=== PATIENT | male | born 1980 | race Asian ===

== ENCOUNTER 2024-06-27 10:52 | Outpatient (REF) | payer OTHER, SELFPAY ==
[2024-06-27 13:53] LABS: MANUAL DIFF FLAG NO
[2024-06-27 14:03] LABS: Basophils Percent Auto 0.2 % (0-2); Eosinophils Absolute Auto 0.1 X10*3/uL (0.0-0.4); Eosinophils Percent Auto 2.3 % (0-4); Hematocrit 40.2 % (42.0-52.0); Hemoglobin 13.8 g/dl (14.0-18.0); Imm Gran Abs Auto 0.02 X10*3/uL (0.00-0.03); Imm Gran Pct Auto 0.4 % (0.0-0.4); Lymphocytes Absolute Auto 1.5 X10*3/uL (1.2-4.9); Lymphocytes Percent Auto 30.8 % (20-40); Mean Corpuscular HGB Conc 34.3 g/dl (31.0-36.0); Mean Corpuscular Hemoglobin 29.7 pg (27.0-33.0); Mean Corpuscular Volume 86.6 fL (80.0-98.0); Mean Platelet Volume 9.1 fL (9.4-12.4); Monocytes Absolute Auto 0.6 X10*3/uL (0.1-1.2); Monocytes Percent Auto 12.4 % (2-11); Neutrophils Absolute Auto 2.6 x10*3/uL (2.0-8.3); Neutrophils Percent Auto 53.9 % (45-73); Platelet Count 366 X10*3/uL (160-400); Red Blood Count 4.64 X10*6/uL (4.60-5.80); Red Cell Distribution Width 12.1 % (11.0-16.0); White Blood Count 4.7 X10*3/uL (4.8-10.8)
[2024-06-27 14:21] LABS: Alanine Aminotransferase 34 U/L (0-40); Albumin Level 4.7 g/dL (3.5-5.0); Alkaline Phosphatase 69 U/L (39-117); Anion Gap 12 (12-20); Aspartate Amino Transferase 24 U/L (5-37); Bilirubin Total 0.6 mg/dL (0.0-1.0); Blood Urea Nitrogen 16 mg/dL (9-16); Carbon Dioxide 28 mmol/L (22-29); Chloride 101 mmol/L (96-108); Cholesterol 158 mg/dL (<200); Estimated Glomerular Filt Rate > 60; Glucose Fasting 96 mg/dL (60-99); HDL Cholesterol 32 mg/dL (>40); LDL Cholesterol Calculated 82 mg/dL (<100); Potassium 4.3 mmol/L (3.3-5.1); Sodium 137 mmol/L (135-145); Total Protein 8.3 g/dL (6.5-8.0); Triglycerides 221 mg/dL (<150)
[2024-06-27 14:45] LABS: Thyroid Stimulating Hormone 1.07 uIU/mL (0.32-4.0)
== END 2024-06-27 10:53 | disposition home or self-care (01) ==
LOC: HO.CHCLDS 10:52
PROVIDERS: Visit Provider Internal Medicine
DX: Z00.00 Encounter for general adult medical examination without abnormal findings (principal); F32.9 Major depressive disorder, single episode, unspecified; I10 Essential (primary) hypertension; K59.00 Constipation, unspecified; Z95.5 Presence of coronary angioplasty implant and graft; E78.00 Pure hypercholesterolemia, unspecified
CPT/HCPCS: 36415; 80053; 80061; 84443; 85025

== ENCOUNTER 2024-09-01 09:26 | Outpatient (AMB) | payer OTHER, SELFPAY ==
--- NOTE | 2024-09-01 09:31 | MHC.OFFVIS ---
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 Available records were reviewed. He is originally from [facility]. Apparently used to live in [place]. Around May of 2020, he apparently had chest pain episodes but could not get medical care in [facility]. Then he travel to [facility] a few weeks later where he underwent cardiac catheterization and LAD stenting. After that, it seems that he was generally okay. In the last few weeks/months, he has again noticing some chest pressure type episodes. He states that he walks for a 20-30 minutes and then started feeling some discomfort. He has been getting nitroglycerin from someone else. He is not aware of his medications but showed me a photograph with the bottles. That has both atorvastatin and rosuvastatin. Otherwise, listed to be on Plavix but not on aspirin and he is again not aware of that. Denies any smoking history. Not listed to be a diabetic or hypertensive. [facility] Medical History (Updated 09/01/24 @ 09:56 by Solomon Berg MD) Ischemic cardiomyopathy Atherosclerotic cardiovascular disease Surgical History (Updated 09/01/24 @ 09:41 by Meghann Thomas CMA) H/O angioplasty Family History (Updated 09/01/24 @ 09:41 by Meghann Thomas CMA) Father Heart attack HTN (hypertension) Mother HTN (hypertension) Social History (Updated 09/01/24 @ 09:42 by Meghann Thomas CMA) Alcohol intake: never Patient Tobacco Use Status: Never used Tobacco Review of Systems Const Denies chills, Denies daytime sleepiness, Denies fatigue, Denies fever(s), Denies poor appetite, Denies snoring, Denies stops breathing during sleep, Denies weakness, Denies weight gain and Denies weight loss Eyes Denies loss of vision ENT Denies dizziness and Denies hearing loss Card Denies chest pain, Denies irregular heart rhythm, Denies claudication, Denies leg edema, Denies lightheadedness, Reports palpitations, Denies dyspnea on exertion and Denies orthopnea Resp Denies cough, Denies excessive phlegm production, Denies dyspnea on exertion, Denies snoring and Denies wheezing GI Denies abdominal pain, Denies hematochezia, Denies change in bowel habits, Denies nausea and Denies vomiting Denies dysuria and Denies urinary frequency Musc Denies arthralgias, Denies muscle weakness, Denies numbness and Denies other Skin/Breast Denies nail changes and Denies rash Neuro Denies Abnormal speech present, Denies dizziness, Denies loss of vision, Denies memory loss, Denies numbness and Denies weakness Psych Denies depression and Denies memory loss Endo Denies fatigue and Reports palpitations Aron/Lymph Denies easy bruising Aller/Immun Denies wheezing Physical Exam Vital Signs: Last Vital Signs Pulse 68 09/01/24 09:36 BP 120/88 09/01/24 09:36 BMI result Body Mass Index 27.7 Const General: comfortable and no acute distress Orientation/consciousness: patient oriented x3 HEENT Other: Unremarkable Head: Yes normal to inspection Neck Neck: Yes normal visual inspection Chest Chest palpation & inspection: normal inspection of the chest Resp Auscultation: clear to auscultation bilaterally Cardio Palpation: normal PMI Heart sounds: S1 normal heart sound present, S2 normal heart sound present, no gallops, no murmurs and no rubs GI Palpation (GI): Soft to palpation Back/Spine/Pelvis Other: unremarkable Skin General skin exam: no rashes or lesions noted Neuro General: patient oriented x3 Speech: No Abnormal speech present Extrem General: Yes normal to inspection Psych Mental Status: mental status grossly normal Office Procedures EKG Details: EKG with underlying sinus rhythm at 68/Min; premature supraventricular/ventricular complexes; old anterolateral infarct; [place] [address]-[id number], Complete Assessment & Plan Assessment & Plan (1) Atherosclerotic cardiovascular disease: Code(s): I25.10 - Atherosclerotic heart disease of [place] coronary artery without angina pectoris Category: Medical (2) Ischemic cardiomyopathy: Code(s): I25.5 - Ischemic cardiomyopathy Category: Medical Plan Cardiac catheterization 2019-LAD with severe diffuse proximal and mid disease followed by severe disease in the distal part. Circumflex with mild irregularities. Small caliber OM1/OM2 with stenosis. PDA shows mild proximal disease. RCA with severe diffuse proximal disease and nondominant vessel. Status post PCI to LAD. Overall, established coronary disease, prior LAD PCI, ischemic cardiomyopathy again having anginal-type symptoms. We discussed about further workup. Recommend diagnostic catheterization and he is agreeable. We will also get an echocardiogram for cardiac function, LVEF and wall motion. With regard to medications, he is quite confused. As he is on 2 statins, we can stop the rosuvastatin and just continue atorvastatin. He is not sure if he is taking aspirin or not but list has Plavix and continue that. If any recurrent chest pain that would not resolve with SL nitrates, advised him to seek emergency help/911 call. Also advised him to avoid any strenuous physical activity. He seems to understand. Discussed with . He will schedule him for cardiac catheterization soon. Orders: Orders Complete Blood Count no Diff Today I25.10 - Atherosclerotic heart disease of [place] coronary artery without angina pectoris Basic Metabolic Panel Today I25.10 - Atherosclerotic heart disease of [place] coronary artery without angina pectoris Prothrombin Time INR Today I25.10 - Atherosclerotic heart disease of [place] coronary artery without angina pectoris CA echo transthoracic complete Today I25.10 - Atherosclerotic heart disease of [place] coronary artery without angina pectoris Cardiac Cath LT w PCI Today I25.10 - Atherosclerotic heart disease of [place] coronary artery without angina pectoris Medications: New nitroglycerin do not exceed 3 doses per episode 0.4 mg sublingual Q5M PRN 30 tabs 5RF chest pain I25.10 - Atherosclerotic heart disease of [place] coronary artery without angina pectoris, R07.2 - Precordial pain Coding Level of Care Code New Pt Level 5 (40867) Diagnoses Atherosclerotic cardiovascular disease I25.10 Ischemic cardiomyopathy I25.5 CPT Codes EKG - CPT: 13617-[id number], Complete ([id number])
[2024-09-01 09:36] VITALS: BP 120/88; PULSE 68; BMI 27.7
== END 2024-09-01 10:48 | disposition home or self-care (01) ==
PROVIDERS: PCP Internal Medicine; Visit Provider Internal Medicine
DX: I25.10 Atherosclerotic heart disease of native coronary artery without angina pectoris (principal); I25.5 Ischemic cardiomyopathy
CPT/HCPCS: 93010; 99204

== ENCOUNTER 2024-09-01 09:26 | Outpatient (REF) | payer SELFPAY ==
[2024-09-01 11:11] LABS: Hematocrit 40.7 % (42.0-52.0); Hemoglobin 13.9 g/dl (14.0-18.0); Mean Corpuscular HGB Conc 34.2 g/dl (31.0-36.0); Mean Corpuscular Volume 87.7 fL (80.0-98.0); Mean Platelet Volume 8.6 fL (9.4-12.4); Platelet Count 333 X10*3/uL (160-400); Red Blood Count 4.64 X10*6/uL (4.60-5.80); Red Cell Distribution Width 11.8 % (11.0-16.0); White Blood Count 5.3 X10*3/uL (4.8-10.8)
[2024-09-01 11:18] LABS: INTERNATIONAL NORM RATIO 0.9 (0.9-1.1)
[2024-09-01 11:49] LABS: Anion Gap 11 (12-20); Blood Urea Nitrogen 13 mg/dL (9-16); Calcium 9.3 mg/dL (8.4-10.2); Carbon Dioxide 24 mmol/L (22-29); Chloride 106 mmol/L (96-108); Estimated Glomerular Filt Rate > 60; Glucose Random 92 mg/dL (60-115); Potassium 3.8 mmol/L (3.3-5.1); Sodium 137 mmol/L (135-145)
== END 2024-09-01 09:27 | disposition home or self-care (01) ==
LOC: HO.LAB 09:26
PROVIDERS: PCP Internal Medicine; Visit Provider Internal Medicine
DX: I25.10 Atherosclerotic heart disease of native coronary artery without angina pectoris (principal)
CPT/HCPCS: 36415; 80048; 85027; 85610; 93005

== ENCOUNTER → 2024-09-23 23:59 | Outpatient (BNV) | payer OTHER, SELFPAY | PROVIDERS: PCP Internal Medicine; Visit Provider Internal Medicine Cardiovascular Disease | DX: I20.89 Other forms of angina pectoris (principal) | CPT/HCPCS: 93458; 99152 ==

== ENCOUNTER 2024-10-09 12:34 | Outpatient (AMB) | payer OTHER, SELFPAY ==
[2024-10-09 12:51] VITALS: BP 120/84; PULSE 75; BMI 29.2
--- NOTE | 2024-10-09 12:51 | A.OFFVIS_ITS ---
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: No Allergies No Known Allergies Allergy (Verified 10/09/24 12:54) Medication List - Last Reconciled 10/09/24 by Amanda Pratt, SHEILA-C aspirin 81 mg PO DAILY carvedilol 6.25 mg PO BID clopidogrel 75 mg PO DAILY furosemide 20 mg PO DAILY lisinopril 10 mg PO DAILY nitroglycerin 0.4 mg sublingual Q5M PRN rosuvastatin 20 mg PO DAILY HPI HPI * 2 wk s/p cathHS: Details: Rehmat is a 44-year-old male with past medical history of hyperlipidemia, coronary artery disease, lad stent 2020 who recently reported exertional chest discomfort and underwent cardiac catheterization and now presents for follow-up. Today he reports that he will get some mild chest discomfort only if he over exerts himself. He does not get symptoms with normal ADLs and his usual work schedule. 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 No concerning shortness of breath, no PND, orthopnea or edema. No lightheadedness, presyncope, syncope, falls. Right radial catheterization site is feeling good. Taking all meds as directed. [facility] Medical History Ischemic cardiomyopathy Atherosclerotic cardiovascular disease Surgical History H/O angioplasty Family History Father Heart attack HTN (hypertension) Mother HTN (hypertension) Social History Alcohol intake: never Patient Tobacco Use Status: Never used Tobacco Review of Systems Const All systems reviewed & are unremarkable except as noted in HPI and below ENT Denies dizziness Card Reports chest pain, Denies chest pain at rest, Reports chest pain with activity, Denies rapid heart rate, Denies pedal edema, Denies edema, Denies leg edema, Denies lightheadedness, Denies palpitations, Denies dyspnea, Denies dyspnea on exertion and Denies orthopnea Resp Denies cough, Denies dyspnea and Denies dyspnea on exertion GI Denies hematochezia and Denies change in stool character Musc Denies abnormal gait, Denies limited range of motion, Denies muscle cramps, Denies muscle weakness, Denies numbness, Denies radiating pain into limb, Denies stiffness and Denies tingling Neuro Denies abnormal gait, Denies dizziness, Denies numbness and Denies tingling Endo Denies palpitations Physical Exam Vital Signs: Last Vital Signs Pulse 75 10/09/24 12:51 BP 120/84 10/09/24 12:51 BMI result Body Mass Index 29.2 Const General: cooperative, healthy appearing, comfortable and no acute distress Orientation/consciousness: patient oriented x3 Neck Neck: Yes normal visual inspection and Yes no JVD Resp Effort & Inspection: normal respiratory effort Auscultation: clear to auscultation bilaterally, no crackles, no rales, no rhonchi and no wheezes Cardio Jugular venous distension: no JVD Rate: regular rate Rhythm: regular rhythm Heart sounds: S1 normal heart sound present, S2 normal heart sound present, no murmurs and no rubs Neuro General: patient oriented x3 Extrem Other: right radial cath site well healed, easily palp radial pulse, no bruit General: Yes normal to inspection, No no pedal edema and No calf tenderness Psych Appearance: grossly normal Mental Status: mental status grossly normal Speech and movement: Normal speech and movement present Assessment & Plan Assessment & Plan (1) Atherosclerotic cardiovascular disease: Code(s): I25.10 - Atherosclerotic heart disease of [place] coronary artery without angina pectoris Category: Medical Plan: History of CAD with LAD stent placed 2019. He recently reported some chest discomfort with exertional activities. A cardiac catheterization was done on 09/23/2024 showing patent stent, distal LAD and circumflex stenosis with branch vessel disease. The decision was made to manage him medically as his angina did not occur frequently, and only if he over exerted. Today he reports that he has not had discomfort since his catheterization procedure. 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 Will have him continue on aspirin and Plavix. Continue carvedilol, lisinopril and rosuvastatin. Signs and symptoms of angina reviewed. If his symptoms become more progressive then PCI will be considered. Discuss this all with him using charts in room. He states understanding. Cardiology follow-up to reassess symptoms in 3-4 months. (2) S/P cardiac cath: Comment: 09/23/2024 LAD 1st diagonal 90% stenosis, lad distal 70% stenosis, patent proximal LAD stent, left circumflex 70% stenosis, OM1 90% stenosis, mid RCA 90% stenosis, ramus 70% stenosis. -due to occasional symptoms plan is for medical management. If progressive angina then consider PCI Code(s): Z98.890 - Other specified postprocedural states Category: Surgical Plan: Right radial catheterization site well healed (3) Ischemic cardiomyopathy: Code(s): I25.5 - Ischemic cardiomyopathy Category: Medical Plan: Ischemic cardiomyopathy listed in problem list. He has no signs of heart failure on examination. Echocardiogram has been ordered however not completed as of yet. Plan to call him with results once available. At this time continue on carvedilol and lisinopril for neurohormonal modulation. (4) Hyperlipidemia: Code(s): E78.5 - Hyperlipidemia, unspecified Category: Medical Plan: [place] LDL goal less than 70 in patient with CAD. Labs done 06/27/2024 shows LDL 82. It looks like he had been on atorvastatin based on our record however his current med list includes rosuvastatin. Unclear what he was on when the LDL was last checked. Recommend recheck of fasting lipid profile. Continue statin therapy. Plan Time spent on chart review, documentation, interview and assessment Medications: New clopidogrel 75 mg PO DAILY 90 tabs 1RF rosuvastatin 20 mg PO DAILY 90 tabs 3RF aspirin 81 mg PO DAILY 90 tabs 3RF lisinopril 10 mg PO DAILY 90 tabs 1RF Changed From carvedilol must administer with a meal/food 6.25 mg PO BID To carvedilol must administer with a meal/food 6.25 mg PO BID 90 days 180 tabs 3RF Coding Level of Care Code Est Pt Level 4 (09572) Complex EM visit Add On G2211 Diagnoses Atherosclerotic cardiovascular disease I25.10 S/P cardiac cath Z98.890 Ischemic cardiomyopathy I25.5 Hyperlipidemia E78.5 Time Spent (min) 30
== END 2024-10-09 13:32 | disposition home or self-care (01) ==
PROVIDERS: PCP Internal Medicine; Visit Provider Nurse Practitioner Family
DX: I25.10 Atherosclerotic heart disease of native coronary artery without angina pectoris (principal); Z98.890 Other specified postprocedural states; I25.5 Ischemic cardiomyopathy; E78.5 Hyperlipidemia, unspecified
CPT/HCPCS: 99214

== ENCOUNTER 2024-10-27 11:54 | Outpatient (REF) | payer OTHER, SELFPAY ==
[2024-10-28 08:53] LABS: Rubeola IgG (Measles) >300.00 AU/mL
[2024-10-30 08:14] LABS: TS Negative Control Passed; TS Panel A 11; TS Panel B 12; TS Positive Control Passed; TSpotTB Positive (Negative)
== END 2024-10-27 11:55 | disposition home or self-care (01) ==
LOC: HO.CHCLDS 11:54
PROVIDERS: Visit Provider Internal Medicine
DX: Z02.89 Encounter for other administrative examinations (principal)
CPT/HCPCS: 36415; 86481; 86735; 86762; 86765; 86787

== ENCOUNTER 2024-11-03 11:40 | Outpatient (REF) | payer OTHER, SELFPAY ==
--- NOTE | ~2024-11-03 | XR_ITS ---
EXAMINATION: XR CHEST CLINICAL INFORMATION: HX OF POSITIVE QUANTIFERON TEST COMPARISON: None available. TECHNIQUE: 2 views of the chest were obtained. FINDINGS: No significant abnormality is noted involving the heart, lungs, mediastinum, bony thorax or soft tissues. XR/XR chest 2V IMPRESSION: Unremarkable examination. Electronically signed by: Lisa Vasquez MD 11/03/2024 01:18 PM [facility]
== END 2024-11-03 11:41 | disposition home or self-care (01) ==
LOC: HO.XRAY 11:40
PROVIDERS: PCP Internal Medicine; Visit Provider Internal Medicine
DX: R76.11 Nonspecific reaction to tuberculin skin test without active tuberculosis (principal)
CPT/HCPCS: 71046

== ENCOUNTER 2025-01-13 12:48 | Outpatient (AMB) | payer OTHER, SELFPAY ==
--- NOTE | 2025-01-13 12:50 | A.OFFVIS_ITS ---
Vital Signs 01/13/25 12:51 Height 5 ft 8 in Weight 187 lb 6.287 oz BMI 28.5 BP 118/80 Blood Pressure Location Lt brachial Position Sitting Pulse 88 Pulse Source Pulse Oximeter Intake Visit Reasons: 6m follow up Allergies No Known Allergies Allergy (Verified 10/09/24 12:54) Medication List - Last Reconciled 01/13/25 by Solomon Berg MD aspirin 81 mg PO DAILY carvedilol 6.25 mg PO BID 90 days clopidogrel 75 mg PO DAILY lisinopril 20 mg PO DAILY nitroglycerin 0.4 mg sublingual Q5M PRN rosuvastatin 20 mg PO DAILY HPI Comments Details: Rehmat returns for follow-up. In 2019, he underwent cardiac catheterization and LAD stenting. He was doing okay but last year he was again noticing anginal- type symptoms. That led to a diagnostic catheterization but medical management has been recommended. Overall, he states he is generally feels okay. Anginal symptoms are not too bothersome and infrequent. Otherwise, doing okay. Since last seen, he underwent diagnostic catheterization. That showed diffuse coronary disease and distal LAD/circumflex stenosis. It was felt that he could be treated medically for now and reserve revascularization for progressive symptoms in the future. [facility] Medical History Ischemic cardiomyopathy Atherosclerotic cardiovascular disease Surgical History H/O angioplasty Family History Father Heart attack HTN (hypertension) Mother HTN (hypertension) Social History Alcohol intake: never Patient Tobacco Use Status: Never used Tobacco Review of Systems Const Denies weakness ENT Denies dizziness Card Denies chest pain, Denies chest pain with activity, Denies syncope, Denies rapid heart rate, Denies pedal edema, Denies edema, Denies leg edema, Denies lightheadedness, Denies palpitations, Denies dyspnea, Denies dyspnea on exertion and Denies orthopnea Resp Denies cough, Denies dyspnea and Denies dyspnea on exertion GI Denies hematochezia and Denies change in stool character Musc Denies abnormal gait, Denies muscle cramps, Denies muscle weakness, Denies numbness, Denies radiating pain into limb and Denies tingling Neuro Denies abnormal gait, Denies dizziness, Denies syncope, Denies numbness, Denies tingling and Denies weakness Endo Denies palpitations Physical Exam Vital Signs: Last Vital Signs Pulse 88 01/13/25 12:51 BP 118/80 01/13/25 12:51 BMI result Body Mass Index 28.5 Const General: comfortable and no acute distress Orientation/consciousness: patient oriented x3 HEENT Other: Unremarkable Head: Yes normal to inspection Neck Neck: Yes normal visual inspection Chest Chest palpation & inspection: normal inspection of the chest Resp Auscultation: clear to auscultation bilaterally Cardio Palpation: normal PMI Heart sounds: S1 normal heart sound present, S2 normal heart sound present, no gallops, no murmurs and no rubs GI Palpation (GI): Soft to palpation Back/Spine/Pelvis Other: unremarkable Skin General skin exam: no rashes or lesions noted Neuro General: patient oriented x3 Extrem General: Yes normal to inspection Psych Mental Status: mental status grossly normal Assessment & Plan Assessment & Plan (1) Atherosclerotic cardiovascular disease: Code(s): I25.10 - Atherosclerotic heart disease of [place] coronary artery without angina pectoris Category: Medical Plan: In the cardiac catheterization from 08/2024, diffuse coronary disease involving the branches. LAD with patent proximal stent. Distal LAD/circumflex stenosis. He is on both aspirin and Plavix. Probably stop the Plavix next visit and just keep on aspirin. Continue beta-blockers. Continue statins. Last LDL 82 mg/dL. Triglycerides on the higher side at 221 mg/dL. Ideally, should be even better. In the past, st atins listed as both atorvastatin and rosuvastatin but currently just states rosuvastatin. No changes made to avoid confusion. In the past, he did not know any of his medications and hence reluctant to make changes. (2) Ischemic cardiomyopathy: Code(s): I25.5 - Ischemic cardiomyopathy Category: Medical Plan: In prior records, LVEF listed as 30% and 42% in different studies. Recheck on echocardiogram. Clinically, no symptoms or signs of congestive heart failure. Continue Coreg/lisinopril. (3) Primary hypertension: Code(s): I10 - Essential (primary) hypertension Category: Medical Plan: Continue lisinopril. Medications: Changed From lisinopril 10 mg PO DAILY 90 tabs 1RF To lisinopril 20 mg PO DAILY Coding Level of Care Code Est Pt Level 4 (65987) Diagnoses Atherosclerotic cardiovascular disease I25.10 Ischemic cardiomyopathy I25.5 Primary hypertension I10
[2025-01-13 12:51] VITALS: BP 118/80; PULSE 88; BMI 28.5
--- OUTSIDE RECORDS SUMMARY | 2025-01-13 13:39 | XMS_ITS ---
Author Name [facility] Organization Unknown Assessment and Plan ID Update Date Source Alert Text [place] [employer] - [id number] 05/24/2021 [place] [employer] - [id number] COVID Vaccination: This patient has received the PFR, COVID-19, mRNA, LNP-S, PF, 0.3mL vaccination on 05/24/2021 with lot number [id number] at [facility] [address] [place] [address]. [place] [employer] - [id number] 05/03/2021 [place] [employer] - [id number] COVID Vaccination: This patient has received the PFR, COVID-19, mRNA, LNP-S, PF, 0.3mL vaccination on 05/03/2021 with lot number [id number] at [facility] [address] [place] [address].
== END 2025-01-13 13:15 | disposition home or self-care (01) ==
PROVIDERS: PCP Internal Medicine; Visit Provider Internal Medicine
DX: I25.10 Atherosclerotic heart disease of native coronary artery without angina pectoris (principal); I25.5 Ischemic cardiomyopathy; I10 Essential (primary) hypertension
CPT/HCPCS: 99214

== ENCOUNTER → 2025-01-13 12:48 | Outpatient (BNVA) | payer OTHER, SELFPAY | PROVIDERS: PCP Internal Medicine; Visit Provider Internal Medicine | DX: I25.10 Atherosclerotic heart disease of native coronary artery without angina pectoris (principal); I25.5 Ischemic cardiomyopathy; I10 Essential (primary) hypertension | CPT/HCPCS: 99212 ==

== ENCOUNTER → 2025-01-14 13:45 | Outpatient (REF) | payer OTHER, SELFPAY ==
--- NOTE | 2025-01-14 13:48 | CA_ITS ---
Transthoracic Echocardiogram Patient (Last, First, Middle): Keke Fallt, Gender: Male Date of : 1980 Age: 44 Procedure Date: 01/14/2025 Procedure Type: Transthoracic Echocardiogram Location: OP Height: 172. 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 Study Quality: Adequate w/Contrast ECG Rhythm: Bradycardia Conclusions: - The left ventricular systolic function is moderately decreased. The visually estimated ejection fraction is between 30-35%. - The apex, apical anterior, apical septum, mid inferoseptal, and mid anteroseptal segments are akinetic. - No obvious valvular pathology seen on this study. Findings Procedure Information Contrast agent, definity, is being given per protocol without apparent complications. Left Ventricle Mildly increased left ventricular cavity size. There is normal left ventricular wall thickness. The left ventricular systolic function is moderately decreased. The visually estimated ejection fraction is between 30 35%. There is evidence of regional wall motion abnormalities. Diastolic function is normal for age. Wall Motion Rest Echo Findings The apex, apical anterior, apical septum, mid inferoseptal, and mid anteroseptal segments are akinetic. Right Ventricle Mildly increased right ventricular cavity size. There is normal right ventricular systolic function. Atria Both atria are normal in size. Aortic Valve There is a normal trileaflet aortic valve. There is no aortic valve stenosis. There is no aortic valve regurgitation. Mitral Valve The mitral valve appears normal. There is trace mitral valve regurgitation. There is no mitral valve stenosis. Pulmonic Valve The pulmonic valve is likely normal. Tricuspid Valve There is no tricuspid valve regurgitation. Tricuspid regurgitation envelope is inadequate for calculation of right ventricular systolic pressure. Great Vessels The asc aorta is normal in size. Venous The inferior vena cava is normal in size and collapses greater than 50% with inspiration. Pericardium/Pleural There is no evidence of pericardial effusion. Prior Study Comparison No prior study available for comparison. Recommendations, Care & Conclusions No obvious valvular pathology seen on this study. Measurements 2D Linear Measurements IVSd: 0.73 0.6-0.9/0.6-1.0 cm LVIDd: 5.67 3.9-5.3/4.2-5.9 cm LVIDd Index: 2.86 2.4-3.2/2.2-3.1 cm/m2 LVIDs: 4.38 2.0-3.6 cm LVPWd: 0.90 0.7-1.1 cm LA Diam: 4.00 2.7-3.8/3.0-4.0 cm LAIDs Index: 2.02 1.5-2.3 cm/m2 LV Mass: 213.51 67-162/88-224 g LV Mass Index: 107.83 43-95/49-115 g/m2 LVOT Diam: 2.30 3.0+(-)1.3 cm 2D Systolic Function EF 4C: 27.50 >55% EF 2C: 42.40 >55% EF BiP: 37.00 >55% Mitral Valve MV Pk E: 0.69 MV PK A: 0.56 MV Decel Time: 165.00 E/A: 1.20 E'Lateral: 10.10 E'Medial: 6.31 E/E' Med: 10.90 E/E' Lat: 6.80 PHT: 48.00 MVA PHT: 4.58 Decel Butler: 4.15 Aortic Valve AoV Pk Branden: 1.10 AoV Mn Branden: 0.85 AoV VTI: 0.23 AoV Pk Grad: 5.00 Aov Mn Grad: 3.00 RENZO Cont.VTI: 3.18 LVOT LVOT Pk Branden: 0.86 LVOT Mn Branden: 0.56 LVOT VTI: 0.18 LVOT Pk Grad: 3.00 LVOT Mn Grad: 2.00 LVOT Diam: 2.30 LVOT Area: 4.15 Diastolic Function MV Pk E: 0.69 MV Pk A: 0.56 E/A: 1.20 E'Medial: 6.31 E/E' Med: 10.90 E' Laterial: 10.10 E/E' Lat: 6.80 Right Ventricle TAPSE (mm): 23.80 TVS' Branden: 12.40 Tricuspid Valve RA Press: 3.00 Great Vessels Aorta Sinus of Valsalva: 3.30 2.0-3.5 cm Ao Asc: 2.90 2.1-3.4 cm Pulmonary Valve PV Pk Branden: 0.87 Peak PV Grad: 3.00 Updated in Other Vendor System with Status of Final Solomon Berg MD electronically signed on 01/15/2025 3:14:59 PM with status of Final
== END ==
LOC: HO.CARD 13:45
PROVIDERS: PCP Internal Medicine; Visit Provider Internal Medicine
DX: I25.10 Atherosclerotic heart disease of native coronary artery without angina pectoris (principal)
CPT/HCPCS: 93306; Q9957

== ENCOUNTER → 2025-01-14 13:48 | Outpatient (BNV) | payer OTHER, SELFPAY | PROVIDERS: PCP Internal Medicine; Visit Provider Internal Medicine | DX: I25.10 Atherosclerotic heart disease of native coronary artery without angina pectoris (principal); I51.89 Other ill-defined heart diseases | CPT/HCPCS: 93306 ==

== ENCOUNTER 2025-01-23 13:38 | Outpatient (REF) | payer OTHER, SELFPAY ==
[2025-01-23 14:48] LABS: Hematocrit 40.9 % (42.0-52.0); Hemoglobin 13.6 g/dl (14.0-18.0); Mean Corpuscular HGB Conc 33.3 g/dl (31.0-36.0); Mean Corpuscular Hemoglobin 28.8 pg (27.0-33.0); Mean Corpuscular Volume 86.7 fL (80.0-98.0); Mean Platelet Volume 9.3 fL (9.4-12.4); Platelet Count 297 X10*3/uL (160-400); Red Blood Count 4.72 X10*6/uL (4.60-5.80); Red Cell Distribution Width 12.6 % (11.0-16.0); White Blood Count 4.5 X10*3/uL (4.8-10.8)
[2025-01-23 16:24] LABS: Alanine Aminotransferase 66 U/L (0-40); Albumin Level 4.3 g/dL (3.5-5.0); Alkaline Phosphatase 58 U/L (39-117); Anion Gap 10 (12-20); Aspartate Amino Transferase 37 U/L (5-37); Bilirubin Total 0.3 mg/dL (0.0-1.0); Blood Urea Nitrogen 12 mg/dL (9-16); Calcium 9.3 mg/dL (8.4-10.2); Carbon Dioxide 26 mmol/L (22-29); Chloride 106 mmol/L (96-108); Cholesterol 142 mg/dL (<200); Estimated Glomerular Filt Rate > 60; Glucose Random 107 mg/dL (60-115); HDL Cholesterol 31 mg/dL (>40); LDL Cholesterol Calculated 61 mg/dL (<100); Potassium 4.2 mmol/L (3.3-5.1); Sodium 138 mmol/L (135-145); Total Protein 8.1 g/dL (6.5-8.0); Triglycerides 254 mg/dL (<150)
== END 2025-01-23 13:39 | disposition home or self-care (01) ==
LOC: HO.CHCLDS 13:38
PROVIDERS: Visit Provider Internal Medicine
DX: E78.2 Mixed hyperlipidemia (principal); I10 Essential (primary) hypertension; Z68.28 Body mass index [BMI] 28.0-28.9, adult; Z95.5 Presence of coronary angioplasty implant and graft
CPT/HCPCS: 36415; 80053; 80061; 85027

== ENCOUNTER 2025-07-08 12:21 | Outpatient (REF) | payer OTHER, SELFPAY ==
--- NOTE | ~2025-07-08 | XR_ITS ---
EXAMINATION: XR CHEST CLINICAL INFORMATION: HX OF POSITIVE QUANTIFERON TEST COMPARISON: November 03, 2024. TECHNIQUE: 2 views of the chest were obtained. FINDINGS: Prominence of the interstitial lung markings, perihilar region. No hyperinflation. No gross consolidation, pleural effusion or pneumothorax. Cardiomediastinal silhouette size is normal. S-shaped curvature of the thoracic spine. XR/XR chest 2V IMPRESSION: Concerning acute small airway inflammatory processes. Electronically signed by: Alex Pearl MD 07/08/2025 12:40 PM EDT
== END 2025-07-08 12:22 | disposition home or self-care (01) ==
LOC: HO.XRAY 12:21
PROVIDERS: PCP Internal Medicine; Visit Provider Internal Medicine
DX: R76.11 Nonspecific reaction to tuberculin skin test without active tuberculosis (principal)
CPT/HCPCS: 71046

== ENCOUNTER → 2025-07-08 12:26 | Outpatient (BNV) | payer OTHER, SELFPAY | PROVIDERS: PCP Internal Medicine; Visit Provider Radiology Diagnostic Radiology | DX: J21.9 Acute bronchiolitis, unspecified (principal) | CPT/HCPCS: 71046 ==

== ENCOUNTER 2025-07-13 13:36 | Outpatient (AMB) | payer OTHER, SELFPAY ==
[2025-07-13 13:40] VITALS: BP 122/70; PULSE 75; BMI 28.2
--- NOTE | 2025-07-13 13:40 | MHC.OFFVIS ---
Vital Signs 07/13/25 13:40 Height 5 ft 8 in Weight 185 lb 3.013 oz BMI 28.2 BP 122/70 Blood Pressure Location Lt brachial Position Sitting Pulse 75 Pulse Source Monitor Intake Visit Reasons: 6mth f/up-echo Allergies No Known Allergies Allergy (Verified 10/09/24 12:54) Medication List - Last Reconciled 07/13/25 by Solomon Berg MD aspirin 81 mg PO DAILY carvedilol 6.25 mg PO BID 90 days clopidogrel 75 mg PO DAILY lisinopril 20 mg PO DAILY nitroglycerin 0.4 mg sublingual Q5M PRN rosuvastatin 40 mg PO DAILY HPI Comments Details: Rehmat returns for follow-up. In 2019, he underwent cardiac catheterization and LAD stenting. He was doing okay but last year he was again noticing anginal-type symptoms. That led to a diagnostic catheterization but medical management recommended. For the most part, seems that he is doing fine. No new concerns. [facility] Medical History Ischemic cardiomyopathy Atherosclerotic cardiovascular disease Surgical History H/O angioplasty Family History Father Heart attack HTN (hypertension) Mother HTN (hypertension) Social History Alcohol intake: never Patient Tobacco Use Status: Never used Tobacco Review of Systems Const Denies weakness ENT Denies dizziness Card Denies chest pain, Denies chest pain with activity, Denies syncope, Denies rapid heart rate, Denies pedal edema, Denies edema, Denies leg edema, Denies lightheadedness, Denies palpitations, Denies dyspnea, Denies dyspnea on exertion and Denies orthopnea Resp Denies cough, Denies dyspnea and Denies dyspnea on exertion GI Denies hematochezia and Denies change in stool character Musc Denies abnormal gait, Denies muscle cramps, Denies muscle weakness, Denies numbness, Denies radiating pain into limb and Denies tingling Neuro Denies abnormal gait, Denies dizziness, Denies syncope, Denies numbness, Denies tingling and Denies weakness Endo Denies palpitations Physical Exam Vital Signs: Last Vital Signs Pulse 75 07/13/25 13:40 BP 122/70 07/13/25 13:40 BMI result Body Mass Index 28.2 Const General: comfortable and no acute distress Orientation/consciousness: patient oriented x3 HEENT Other: Unremarkable Head: Yes normal to inspection Neck Neck: Yes normal visual inspection Chest Chest palpation & inspection: normal inspection of the chest Resp Auscultation: clear to auscultation bilaterally Cardio Palpation: normal PMI Heart sounds: S1 normal heart sound present, S2 normal heart sound present, no gallops, no murmurs and no rubs GI Palpation (GI): Soft to palpation Back/Spine/Pelvis Other: unremarkable Skin General skin exam: no rashes or lesions noted Neuro General: patient oriented x3 Extrem General: Yes normal to inspection Psych Mental Status: mental status grossly normal Assessment & Plan Assessment & Plan (1) Atherosclerotic cardiovascular disease: Code(s): I25.10 - Atherosclerotic heart disease of [place] coronary artery without angina pectoris Category: Medical Plan: In the cardiac catheterization from 08/2024, diffuse coronary disease. LAD with patent proximal stent. Distal LAD/circumflex stenosis. He is on both aspirin and Plavix. He can continue the aspirin but stop Plavix. Continue beta-blockers. Continue statins. Patient states he had lab work done through his own PCP and statin dose was increased. We can get those labs. (2) Ischemic cardiomyopathy: Code(s): I25.5 - Ischemic cardiomyopathy Category: Medical Plan: In prior records, LVEF listed as 30% and 42% in different studies. In the echocardiogram, LVEF is 30-35% with wall motion abnormalities from underlying coronary disease. We can repeat this to see if there is any change. Discussed about ICD for primary prevention, but patient does not appear to be interested. He would like to leave it as it is. (3) Primary hypertension: Code(s): I10 - Essential (primary) hypertension Category: Medical Plan: Continue lisinopril. Plan Discussion Notes I discussed with the patient the discontinuation of clopidogrel and continuation of aspirin therapy for coronary artery disease management. We talked about the need for a follow-up echocardiogram to evaluate heart function and the potential requirement for a defibrillator if cardiac function has not improved. I emphasized the importance of managing hyperlipidemia and advised the patient to obtain recent cholesterol levels from his primary care physician. Patient was informed and verbally consented to the use of an ambient scribe for clinic note documentation during this visit. Medications: Changed From rosuvastatin 20 mg PO DAILY 90 tabs 3RF To rosuvastatin 40 mg PO DAILY Discontinued clopidogrel Discontinued Reason: Doctor's Order 75 mg PO DAILY 90 tabs 1RF Patient Instructions: - Stop taking clopidogrel and continue with aspirin as directed. - Schedule a follow-up echocardiogram to check heart function. Coding Level of Care Code Est Pt Level 4 (19776) Complex EM visit Add On G2211 Diagnoses Atherosclerotic cardiovascular disease I25.10 Ischemic cardiomyopathy I25.5 Primary hypertension I10
--- OUTSIDE RECORDS SUMMARY | 2025-07-13 14:30 | XMS_ITS ---
Author Name [facility] Organization Unknown Assessment and Plan ID Update Date Source Alert Text [facility]-[id number] 05/24/2021 [facility] COVID Vaccination: This patient has received the PFR, COVID-19, mRNA, LNP-S, PF, 0.3mL vaccination on 05/24/2021 with lot number [id number] at [facility] [address] [place] [address]. [place] [facility]-[id number] 05/03/2021 [facility] COVID Vaccination: This patient has received the PFR, COVID-19, mRNA, LNP-S, PF, 0.3mL vaccination on 05/03/2021 with lot number [id number] at [facility] [address] [place] [address]. Care Team Organization Name Specialty Phone Email Start Date End Da te [employer] 12/16/2023 0 11/27/2024 [facility] 09/26/2023
== END 2025-07-13 14:02 | disposition home or self-care (01) ==
LOC: HO.HCS 13:37
PROVIDERS: PCP Internal Medicine; Visit Provider Internal Medicine
DX: I25.10 Atherosclerotic heart disease of native coronary artery without angina pectoris (principal); I25.5 Ischemic cardiomyopathy; I10 Essential (primary) hypertension
CPT/HCPCS: 93010; 99214; G2211

== ENCOUNTER → 2025-07-13 13:36 | Outpatient (BNVA) | payer OTHER, SELFPAY | PROVIDERS: PCP Internal Medicine; Visit Provider Internal Medicine | DX: I25.10 Atherosclerotic heart disease of native coronary artery without angina pectoris (principal); I25.5 Ischemic cardiomyopathy; I10 Essential (primary) hypertension; E78.5 Hyperlipidemia, unspecified; Z79.82 Long term (current) use of aspirin; Z79.02 Long term (current) use of antithrombotics/antiplatelets; Z79.899 Other long term (current) drug therapy; Z95.5 Presence of coronary angioplasty implant and graft | CPT/HCPCS: 93005 ==